=== PATIENT | male | born 1970 | race Two or more races ===

== ENCOUNTER 2024-05-21 19:25 | Emergency (ER) | payer OTHER ==
[~2024-05-21] VITALS: Ht 170.2 cm; Wt 76.1 kg
[2024-05-21 20:20] VITALS: BP 127/83; PULSE 77; RESP 16; O2SAT 99
== END 2024-05-22 01:51 | disposition home or self-care (01) ==
LOC: ER 19:25
DX: S93.491A Sprain of other ligament of right ankle, initial encounter (principal); W18.39XA Other fall on same level, initial encounter; Y93.89 Activity, other specified; Y92.091 Bathroom in other non-institutional residence as the place of occurrence of the external cause; Y99.8 Other external cause status
CPT/HCPCS: 73610